=== PATIENT | female | born 1950 | race Caucasian/White ===

== ENCOUNTER 2024-05-22 11:39 | Outpatient (CLI) | payer MEDICARE, OTHER, SELFPAY ==
--- NOTE | 2024-05-22 13:11 | ECG_ITS ---
Test Date: 2024-05-22 13:15:48 Measurements Intervals [place] Rate: 59 P: 6 DE: 136 QRS: -14 QRSD: 93 T: -11 QT: 381 QTc: 380 Interpretive Statements BASELINE ARTIFACT, POOR ECG QUALITY SINUS BRADYCARDIA WITH SINUS ARRHYTHMIA POOR R-WAVE PROGRESSION NONSPECIFIC T-WAVE ABNORMALITY ABNORMAL ECG No previous ECG available for comparison Electronically Signed On 05-23-2024 07:05:33 CDT by Vasquez Lopez M.D.
[2024-05-22 13:37] LABS: Basophils Percent Auto 0.5 % (0.2-1.2); Eosinophils Absolute Auto 0.2 K/mm3 (0-0.3); Eosinophils Percent Auto 2.2 % (0-4.4); Hematocrit 42.9 % (37.0-47.0); Hemoglobin 14.1 g/dL (12.0-15.0); Immature Granulocyte Absolute 0.03 K/mm3 (0.00-0.031); Immature Granulocyte Percent A 0.4 % (0-0.5); Lymphocytes Absolute Auto 1.92 K/mm3 (0.9-3.2); Lymphocytes Percent Auto 24.4 % (18.3-44.2); Mean Corpuscular HGB Conc 32.9 g/dl (32-36); Mean Corpuscular Hemoglobin 29.1 pg (26-34); Mean Corpuscular Volume 88.6 fl (80-100); Mean Platelet Volume 9.6 fl (7.4-10.4); Monocytes Absolute Auto 0.6 K/mm3 (0.1-0.6); Monocytes Percent Auto 7.1 % (2.6-8.5); Neutrophils Absolute Auto 5.2 K/mm3 (1.3-6.7); Neutrophils Percent Auto 65.4 % (45.5-73.1); Platelet Count Result 313 k/mm3 (150-375); Red Blood Count 4.84 M/mm3 (4.2-5.4); Red Cell Distribution Width 13.4 % (11.5-14.5); White Blood Count 7.9 K/mm3 (4.5-10.0)
[2024-05-22 13:46] LABS: Alanine Aminotransferase 25 U/L (6-35); Albumin Level 4.3 g/dL (3.5-5.1); Alkaline Phosphatase 125 U/L (38-126); Anion Gap 7 mmol/L (4-12); Aspartate Amino Transferase 29 U/L (14-36); Bilirubin,Total 0.5 mg/dL (0.2-1.3); Blood Urea Nitrogen 15 mg/dL (7-17); Calcium 9.8 mg/dL (8.4-10.2); Carbon Dioxide 29 mmol/L (22-30); Chloride 105 mmol/L (98-107); Estimated Glomerular Filt Rate > 60; Glucose 102 mg/dL (65-110); Prothrombin Time 13.3 Seconds (11.1-14.7); Sodium 141 mmol/L (137-145)
[2024-05-22 13:47] LABS: Partial Thromboplastin Time 26.2 Seconds (22.3-36.8)
== END 2024-05-22 11:40 | disposition home or self-care (01) ==
PROVIDERS: PCP Family Medicine; Visit Provider Urology
DX: N81.4 Uterovaginal prolapse, unspecified (principal); E78.5 Hyperlipidemia, unspecified; I10 Essential (primary) hypertension; R94.31 Abnormal electrocardiogram [ECG] [EKG]
CPT/HCPCS: 36415; 80053; 85025; 85610; 85730; 86850; 86900; 86901; 93005

== ENCOUNTER 2024-06-04 02:21 | Day surgery (SDC) | payer MEDICARE, OTHER, SELFPAY ==
[2024-05-22 12:28] VITALS: BP 150/70; PULSE 76; RESP 16; TEMP 36.8; O2SAT 98; BMI 29.7
--- NOTE | 2024-05-22 12:30 | PC.NURSE ---
Report to the Outpatient Waiting Room, entrance under the green pavilion located off [facility], at time __06:00am___on date _06/04/24 . Planned Procedure Time: _07:30am .? Time changes happen often and if your time is changed the preop area will call you the afternoon before. - You and your visitor will be asked to self-screen and do not enter if you have any COVID symptoms. Please call surgeon if you need to reschedule. - A mask is optional within the hospital at this time. Patients may have clear liquids (water, carbonated beverages, clear teas, apple juice) until 3 hours prior to surgery with a maximum of 20 ounces. - No food from midnight until time of surgery and no smoking (04:30am) Take only the following medications with a SIP of water on the morning of surgery: ____None DO NOT STOP ANY OF YOUR OTHER PRESCRIPTION MEDICATIONS PRIOR TO SURGERY EXCEPT THE FOLLOWING Medications to discontinue per physician Hold all vitamins and supplements 3 days prior per Anesthesia Date to take last dose____05/31/24 Please no make-up, nail pashto, hairspray, perfume, deodorant, or body powder the day of surgery.? No jewelry (including any body piercings) or valuables the day of surgery, leave them at home.? Please take a shower or bath the night before, or the morning of, surgery with an antibacterial soap.? Wear comfortable, loose fitting clothing.? - Jewelry must be removed prior to entering the operating room.? Rings and piercings that are not removed may be cut off. - The hospital will not accept responsibility for valuables.? - Please leave all valuables, including medications, at home the day of surgery. If you are going home after surgery, a licensed milk wagon driver must drive you home.? - NO public transportation without another adult if you receive anesthesia. - We recommend that an adult stay with you for 24 hours following discharge. - We also recommend that you do not drive, make important decision, drink alcoholic beverages, or take any drugs that were not prescribed by your health care provider for at least 24 hours after your discharge time. Follow any additional instructions given to you from your surgeon. Telephone instructions given to __patient and asked if any additional questions and then verbalized understanding. Patient advised to call surgeon office or pre surgery nurse liaison [phone] if any additional questions.
--- NOTE | 2024-05-30 12:36 | PM.IMHP ---
H&P: HPI History of Present Illness Date/Time: 05/30/24 12:36 Chief Complaint: Uterine prolapse Narrative: Patient is admitted for robotic supracervical hysterectomy bilateral salpingo-oophorectomy. She has uterine prolapse sacral colpopexy and further were with Risks and benefits reviewed. She has a Pap smear [facility] Social History Social History Smoking packs per day: 0.5 Smoking cigarettes per day: 10.0 Years smoked: 30 Smoking pack-years: 15.00 Smoking status: Former smoker Smoking end date: 12/13/08 Alcohol intake: never Substance use: never Living arrangements: with family Additional living arrangements comments: Spiritual care concerns: No Meds Home Medications and Allergies Home Medications Medication Instructions Recorded Confirmed Type amlodipine 5 mg tablet 5 mg PO PRN PRN high bp 05/22/24 05/22/24 History atorvastatin 20 mg tablet 20 mg PO DAILY 05/22/24 05/22/24 History cetirizine 10 mg tablet 10 mg PO DAILY 05/22/24 05/22/24 History losartan 100 mg tablet 100 mg PO DAILY 05/22/24 05/22/24 History montelukast 10 mg tablet 10 mg PO DAILY 05/22/24 05/22/24 History (Singulair) omega 0-mqc-sul-fish oil 300 1 cap PO DAILY 05/22/24 05/22/24 History mg-1,000 mg capsule,delayed release (Fish Oil) pantoprazole 40 mg tablet,delayed 40 mg PO DAILY 05/22/24 05/22/24 History release vit A 7,160 unit-vit C 113 mg-vit 1 tablet PO DAILY 05/22/24 05/22/24 History E 100 cpzk-mlvc-mnerkj tablet Allergies Allergy/AdvReac Type Severity Reaction Status Date / Time amoxicillin [From Augmentin] AdvReac Intermediate Nausea and Verified 05/22/24 12:14 Vomiting clavulanic acid AdvReac Intermediate Nausea and Verified 05/22/24 12:14 [From Augmentin] Vomiting prednisone AdvReac Intermediate Palpitation Verified 05/22/24 12:17 s Exam Const: General: cooperative, healthy appearing, comfortable and average body habitus Nutritional Appearance: average body habitus Orientation/consciousness: oriented to person, oriented to place and oriented to time Resp: Effort & Inspection: normal respiratory effort Cardio: Rate: regular rate Rhythm: regular rhythm Heart sounds: S1 normal heart sound present and S2 normal heart sound present GI: Inspection: normal to inspection : External Female Exam: normal external appearance Speculum Exam - Vagina: normal appearance of the vagina Speculum Exam - Cervix: normal appearance of the cervix (Prolapse present) Bimanual exam- vagina & uterus: uterine size normal Bimanual Exam- Adnexa, other: normal adnexae Assessment and Plan Assessment and plan (1) Uterine prolapse: Code(s): N81.4 - Uterovaginal prolapse, unspecified Status: Acute Assessment and Plan: Robotic supracervical hysterectomy and bilateral salpingo-oophorectomy
--- NOTE | 2024-06-01 10:53 | P.HP_ITS ---
H&P: HPI History of Present Illness Date/Time: 06/01/24 10:53 Chief Complaint: Uterine prolapse Narrative: History of uterine prolapse without stress incontinence. Presents for surgical procedure Review of Systems Review of Systems: All systems reviewed & are unremarkable except as noted in HPI and below PMFSH Social History Social History Smoking packs per day: 0.5 Smoking cigarettes per day: 10.0 Years smoked: 30 Smoking pack-years: 15.00 Smoking status: Former smoker Smoking end date: 12/13/08 Alcohol intake: never Substance use: never Living arrangements: with family Additional living arrangements comments: Spiritual care concerns: No Meds Home Medications and Allergies Home Medications Medication Instructions Recorded Confirmed Type amlodipine 5 mg tablet 5 mg PO PRN PRN high bp 05/22/24 05/22/24 History atorvastatin 20 mg tablet 20 mg PO DAILY 05/22/24 05/22/24 History cetirizine 10 mg tablet 10 mg PO DAILY 05/22/24 05/22/24 History losartan 100 mg tablet 100 mg PO DAILY 05/22/24 05/22/24 History montelukast 10 mg tablet 10 mg PO DAILY 05/22/24 05/22/24 History (Singulair) omega 0-jko-eab-fish oil 300 1 cap PO DAILY 05/22/24 05/22/24 History mg-1,000 mg capsule,delayed release (Fish Oil) pantoprazole 40 mg tablet,delayed 40 mg PO DAILY 05/22/24 05/22/24 History release vit A 7,160 unit-vit C 113 mg-vit 1 tablet PO DAILY 05/22/24 05/22/24 History E 100 gkdy-wrub-oynsxl tablet Allergies Allergy/AdvReac Type Severity Reaction Status Date / Time amoxicillin [From Augmentin] AdvReac Intermediate Nausea and Verified 05/22/24 12:14 Vomiting clavulanic acid AdvReac Intermediate Nausea and Verified 05/22/24 12:14 [From Augmentin] Vomiting prednisone AdvReac Intermediate Palpitation Verified 05/22/24 12:17 s Exam Narrative: Anterior wall +3. [place] at 0 Assessment and Plan Assessment and plan (1) Uterine prolapse: Code(s): N81.4 - Uterovaginal prolapse, unspecified Status: Acute Assessment and Plan: Plan is for robotic sacral colpopexy. Understands risks of bleeding, infection, damage surrounding organs, damage to urinary tract, vaginal mesh extrusion, urinary tract mesh erosion, obstructive voiding requiring secondary procedure, hip and leg pain, dyspareunia recurrent prolapse. New onset stress incontinence, dyspareunia, recurrence of prolapse. Agrees to proceed
[2024-06-04] VITALS (15 sets, daily range): BP systolic 116–168; BP diastolic 67–91; PULSE 52–67; RESP 12–20; TEMP 35.6–36.9; O2SAT 95–100; BMI 29.5
[2024-06-04] MEDS: LACTATED RINGERS 1,000 ML 30 ML IV CONT ×2 (06:40→10:02)
[2024-06-04] MEDS: ACETAMINOPHEN 500 MG TABLET 1000 MG PO (06:43)
[2024-06-04] MEDS: KETOROLAC 15 MG/ML VIAL (*BKC) IV PUSH (06:43)
--- NOTE | 2024-06-04 06:57 | WPDHPUPDATE1 ---
History and Physical Update Update Date/Time: 06/04/24 06:57 History and Physical has been reviewed, including an updated exam of the patient. There are NO changes in the patient's condition. Risks, benefits, and alternatives have been discussed and questions answered. Patient agrees to proceed with procedure.
--- NOTE | 2024-06-04 07:16 | WPDHPUPDATE1 ---
History and Physical Update Update Date/Time: 06/04/24 07:16 History and Physical has been reviewed, including an updated exam of the patient. There are NO changes in the patient's condition. Risks, benefits, and alternatives have been discussed and questions answered. Patient agrees to proceed with procedure.
--- NOTE | 2024-06-04 07:25 | P.PNAN_ITS ---
Anes - Initial Pre Proc Eval Procedure: Operation Date: 06/04/24 07:30 Proposed Procedures p Robotic Sacrocolpopexy, - Yonny Dangelo MD s Robotic Assisted Supracervical Hysterectomy, Bilateral Salpingo-oophorectomy - Linus Olson MD Date/Time: 06/04/24 07:25 Surgeon: Yonny Dangelo MD Pre Op Diagnosis: cystocele,uterine prolapse, stress incont Patient Data Age: 74 Gender: F Height: 1.63 m Weight: 78.2 kg Last Vital Signs Temp 97.0 F L 06/04/24 05:50 Pulse 66 06/04/24 05:50 Resp 16 06/04/24 05:50 BP 158/91 H 06/04/24 05:50 Pulse Ox 98 06/04/24 05:50 O2 Del Method Room Air 06/04/24 05:50 Allergies Allergy/AdvReac Type Severity Reaction Status Date / Time amoxicillin [From Augmentin] AdvReac Intermediate Nausea and Verified 06/04/24 06:12 Vomiting clavulanic acid AdvReac Intermediate Nausea and Verified 06/04/24 06:12 [From Augmentin] Vomiting prednisone AdvReac Intermediate Palpitation Verified 06/04/24 06:12 s Home Medications Medication Instructions Recorded Confirmed Type amlodipine 5 mg tablet 5 mg PO PRN PRN high bp 05/22/24 05/22/24 History atorvastatin 20 mg tablet 20 mg PO DAILY 05/22/24 05/22/24 History cetirizine 10 mg tablet 10 mg PO DAILY 05/22/24 05/22/24 History losartan 100 mg tablet 100 mg PO DAILY 05/22/24 05/22/24 History montelukast 10 mg tablet 10 mg PO DAILY 05/22/24 05/22/24 History (Singulair) omega 1-vnb-wlv-fish oil 300 1 cap PO DAILY 05/22/24 06/04/24 History mg-1,000 mg capsule,delayed release (Fish Oil) pantoprazole 40 mg tablet,delayed 40 mg PO DAILY 05/22/24 05/22/24 History release vit A 7,160 unit-vit C 113 mg-vit 1 tablet PO DAILY 05/22/24 06/04/24 History E 100 datl-ldsv-qugibd tablet Patient hx anesthesia problems: none Family hx anesthesia problems: none Results Review: All pre-operative results and documents have been reviewed as part of the pre- operative evaluation. [facility] Social History Social History Smoking packs per day: 0.5 Smoking cigarettes per day: 10.0 Years smoked: 30 Smoking pack-years: 15.00 Smoking status: Former smoker Smoking end date: 12/13/08 Alcohol intake: never Substance use: never Living arrangements: with family Additional living arrangements comments: Spiritual care concerns: No Anes - Eval Final PreProcedure Day of Procedure 06/04/24 07:25 Patient weight: normal Heart: regular rate and rhythm Lungs: clear to auscultation Airway: Mallampati scale class II Neurological: alert and oriented Last oral intake: >/= 8 hours ASA classification: III Emergent: no Anesthetic plan: proceed Anesthesia type and monitoring: general ETT and standard monitoring Results Review: All pre-operative results and documents have been reviewed as part of the pre- operative evaluation. Informed Consent: The patient's anesthetic plan and its attendant risks and benefits were discussed with the patient/family/POA. Questions were solicited and answers provided to the satisfaction of the patient/family/POA.
[2024-06-04] MEDS: ceFAZolin 2 GM/D5W 50 ML 2 GM/50 ML BAG IVPB (07:34)
[2024-06-04] MEDS: metroNIDAZOLE 500 MG/ISO 100ML 500 MG/100 ML BAG 100 MG IVPB ×3 (08:02→23:42)
--- NOTE | 2024-06-04 08:39 | W.PM.PROC2 ---
Procedure Note - Detailed Date of Procedure 06/04/24 Pre-op Diagnosis cystocele,uterine prolapse, stress incont Post-op Diagnosis Same Procedure Performed Robotic supracervical hysterectomy and bilateral salpingo-oophorectomy Surgeon Linus Olson MD Anesthesia General Indications this patient is a 74-year-old with uterine prolapse Findings prolapsed uterus with possible small fibroid. Tubes status post tubal ligation. Normal-appearing ovaries Description of Procedure the patient is prepped draped sterile fashion placed in dorsal lithotomy position. Under excellent general trach anesthesia weighted speculum placed in posterior fornix vagina. Anterior lip of the cervix grasped with a single-tooth tenaculum. Jasmine's cannula inserted the cervix and attached to the single-tooth. This would be used later for uterine manipulation. A 16 [place] catheter placed in the bladder and drained of clear urine. The weighted speculum was removed and the gloves were changed. Attention was turned to the console. Please see Dr. Martínez dictation concerning placing of the robot arms. The left round ligament was grasped, burned, cut. Anterior bladder flap was formed by sharply dissecting the peritoneum and reflecting the bladder caudally away from the cervix uterus to the opposite round ligament which was clamped, burned, cut. Next the left infundibulopelvic structure was skeletonized to remove the remaining portion of tube and the ovary. This was clamped, burned, cut and brought to level of previously cut round ligament. In similar fashion to remove the right ovary and tube the right infundibulopelvic structure was skeletonized clamped burned and cut and brought to level of previously cut round ligament. The cardinal broad ligaments on the left were serially skeletonized hugging the cervix uterus clamping burning cutting and bringing these down to the level of the uterine vessels. These were individually clamped, burned, cut. In similar fashion on the right, hugging the cervix and uterus the cardinal broad ligaments were clamped, burned, cut and brought to level of uterine vessels. These were then individually clamped, burned, cut. A supracervical incision made and the uterus ovaries and tubes placed in an Endo-Catch. Dr. Lyon took over from there. Blood loss to this point was [id number] there were no complications to this moment Estimated Blood Loss 5 Drains No Packing No Pathology Yes Complications No immediate complications Condition Stable Disposition No change
--- NOTE | 2024-06-04 08:42 | P.DS_ITS ---
DS: Admitting Diagnosis Discharge Date 06/05/2020 Admitting Diagnosis uterine prolapse DS: Discharge Diagnosis Discharge Diagnosis (1) Uterine prolapse: Code(s): N81.4 - Uterovaginal prolapse, unspecified Status: Acute DS: Summary Hospital Course Reason for hospitalization: patient was admitted for robotic supracervical hysterectomy bilateral salpingo- oophorectomy and robotic sacral colpopexy Hospital Course: patient's hospital course. She remained afebrile. She was up, voiding without difficulty, eating regular diet, ambulating, and generally without complaints. Time Spent with Patient Time attestation: Total time spent providing and/or coordinating discharge services: Exam Const: General: cooperative, healthy appearing and comfortable Nutritional Appearance: average body habitus Orientation/consciousness: oriented to person, oriented to place and oriented to time HENMT: Head: normal to inspection Resp: Effort & Inspection: normal respiratory effort Cardio: Rate: regular rate Rhythm: regular rhythm Heart sounds: S1 normal heart sound present and S2 normal heart sound present GI: Inspection: normal to inspection and incision ( Wounds are clean dry and intact) Discharge Plan Discharge Attending physician on discharge: Linus Mclain Discharging Clinician: Linus Mclain Patient Disposition: Home, Self-Care Discharge Instructions: No lifting >20lb, exercise for 6 weeks No tub bath or pool for 2 weeks No lifting >20lbs 6 weeks Stand Alone Forms: General Discharge Instructions Follow-up/Referrals: Yonny Dangelo MD [Physician] - (6 weeks) Discharge Medications: New hydrocodone-acetaminophen 5-325 mg tablet 1 tablet PO Q6H PRN (Reason: pain) Qty: 20 0RF docusate sodium [Colace] 100 mg capsule 100 mg PO BID Qty: 40 0RF Continued amlodipine 5 mg tablet 5 mg PO PRN PRN (Reason: high bp) Patient Comments: see above atorvastatin 20 mg tablet 20 mg PO DAILY cetirizine 10 mg tablet 10 mg PO DAILY pantoprazole 40 mg tablet,delayed release (DR/EC) 40 mg PO DAILY losartan 100 mg tablet 100 mg PO DAILY vit A-vit C-vit E-otgf-etddhj 7,160-113-100 lpme-dd-gunb Tablet 1 tablet PO DAILY montelukast [Singulair] 10 mg Tablet 10 mg PO DAILY omega 1-wns-rnj-fish oil [Fish Oil] 300-1,000 mg Capsule,Delayed Release(Dr/Ec) 1 cap PO DAILY Attending physician on admission: Yonny Dangelo
[2024-06-04] MEDS: BUPIVACAINE/EPINEPHRINE 0.5% 50 ML VIAL 28 ML INFILTRATE (08:43)
--- NOTE | 2024-06-04 09:58 | P.OP_ITS ---
Procedure Note - Detailed Date of Procedure 06/04/24 Pre-op Diagnosis cystocele,uterine prolapse Post-op Diagnosis Same Procedure Performed Robotic assisted laparoscopic sacral colpopexy Cystoscopy Surgeon Yonny Dangelo MD Anesthesia General Indications A woman with uterine prolapse without stress incontinence. She desires surgical correction. She is here for the above. She understands risks of bleeding, infection, diskitis, damage to surrounding organs, bowel injury, bowel obstruction, mesh related complications including exposure and extrusion, postoperative voiding dysfunction including incontinence and retention, need for ancillary procedures, dyspareunia, recurrence of prolapse, and other pe rioperative intraoperative postoperative complications. She agrees to proceed. Findings See below Description of Procedure She was correctly identified. Informed consent obtained. She from the operating room. She was given general anesthesia. She was given appropriate perioperative antibiotics. She was placed a low lithotomy position. Pressure points were padded. A time-out performed. I marked out the skin 3 fingerbreadths cephalad to the umbilicus. I anesthetized the skin. I incised the skin. I dissected down to the fascia. I grasped the fascia with Sky clamps. I entered the fascia sharply in a Morris type technique. I placed sutures for later fascial closure. I placed a midline trocar. I examined the abdomen. There is no sign of any injury. Under direct vision I placed 2 additional trocars in the right upper quadrant and 2 additional trocars the left upper quadrant. She was placed in steep Trendelenburg. The robot was docked. Her special weapons unit officer completed their portion of the procedure. Please see that operative report for details. I then sat at the console. The Sizer in the vagina created plane on the anterior and posterior vaginal wall. I took great care not to injure the vagina, bladder, or rectum. I introduced the mesh into the abdomen. I sewed the anterior leaflet of mesh on the anterior vaginal wall. I sewed the posterior leaflet of mesh on the posterior vaginal wall. This was done with several sutures of 2 0 [place]-Shabbir. I reflected the colon laterally. I opened the posterior peritoneum over the sacral promontory. I carried this into the cul-de-sac. I freed up the edges for later retroperitonealization. I located the anterior longitudinal ligament the sacrum. I cleaned off all fatty tissues. I then tensioned my mesh appropriately. I did a vaginal exam the bedside. I assured prolapse reduction without undue tension. There was no exposed sutures in the vagina. I then sewed the proximal leaflet of mesh onto the anterior longitudinal ligament of the sacrum with 4 sutures of 2 0 [place]-Shabbir. I then used a 2 0 Monocryl to completely and meticulously retroperitonealized all mesh. I allowed the colon to go back to its normal anatomic location. There is no sign of any impingement. The specimen was then removed. All ports removed. Fascia was tied down. Skin was closed with Monocryl and surgical glue. I then performed cystoscopy. There was no tumors or surgical artifact. Both ureters were seen to excrete clear yellow urine. There is no surgical artifact in the bladder or urethra. Dixon catheter was replaced. She was awakened and transferred to PACU in stable condition. Implants Sacral colpopexy mesh Estimated Blood Loss 10 Packing No Pathology None sent Complications No immediate complications Condition Stable Disposition PACU
[2024-06-04] MEDS: ONDANSETRON INJ 4 MG/2 ML VIAL IV PUSH (10:38)
[2024-06-04 10:47] LABS: Glucose Point of Care 145 mg/dl (65-105)
[2024-06-04] MEDS: diphenhydrAMINE HCl INJ 50 MG/ML VIAL 12.5 MG IV PUSH (10:52)
[2024-06-04] MEDS: SCOPOLAMINE 1 MG PATCH 1 PATCH TRANSDERM (11:20)
[2024-06-04] MEDS: fentaNYL CITRATE INJ (*CRX) 100 MCG/2 ML VIAL 25 MCG IV PUSH (11:30)
--- NOTE | 2024-06-04 12:00 | PC.NURSE ---
This patient, Rosa Gonzáles, was received from [PACU] per bed to room 282 on 06/04/24 at 1224. Patient/family oriented to unit policies and routines
[2024-06-04] MEDS: KCL 20 MEQ/D5/0.45% SOD CHL 1,000 ML 100 ML IV CONT ×2 (12:35→23:41)
[2024-06-04] MEDS: LORATADINE 10 MG TABLET PO (14:09)
[2024-06-04] MEDS: METOCLOPRAMIDE HCL INJ 10 MG/2 ML VIAL 5 MG IV PUSH ×2 (16:05)
[2024-06-04] MEDS: MONTELUKAST SODIUM 10 MG TABLET PO (20:59)
[2024-06-04] MEDS: ATORVASTATIN 20 MG TABLET PO (20:59)
[2024-06-04] MEDS: ACETAMINOPHEN 325 MG TABLET 650 MG PO (21:00)
[2024-06-05] MEDS: ACETAMINOPHEN 325 MG TABLET 650 MG PO ×2 (04:35→11:11)
[2024-06-05 04:40] VITALS: BP 131/76; PULSE 59; RESP 20; TEMP 37.1; O2SAT 97
--- NOTE | 2024-06-05 06:53 | PM.GYNPNOP ---
SPINNING SUPERVISOR - A/P Postoperative Procedures: Procedures Operation Date: 06/04/24 07:30 Actual Procedure Side Surgeon p Robotic Sacrocolpopexy, Cystoscopy Not Applicable Yonny Dangelo MD s Robotic Assisted Supracervical Hysterectomy, Bilateral Salpingo-oophorectomy Bilateral Linus Olson MD Postoperative day: 1 Postoperative status: doing well Postoperative plan: routine post-op care, see orders, ambulate, advance diet, voiding trials and discharge Time Spent With Patient Time: Total time spent is greater than 50% in coordination of care (as documented) at patient's floor/unit and/or counseling patient: Time with patient: less than 15 minutes SPINNING SUPERVISOR- PN:Subj Post-Op Subjective Date/time seen: 06/05/24 06:53 Subjective: patient reports feeling better, patient has no complaints, patient desires discharge, pain is well controlled and patient is tolerating oral intake Exam Const: General: cooperative, healthy appearing and comfortable Nutritional Appearance: average body habitus Orientation/consciousness: oriented to person, oriented to place and oriented to time HENMT: Head: normal to inspection Resp: Effort & Inspection: normal respiratory effort Cardio: Rate: regular rate Rhythm: regular rhythm Heart sounds: S1 normal heart sound present and S2 normal heart sound present GI: Inspection: normal to inspection and incision (cdi) SPINNING SUPERVISOR - PN: Obj Data Vital Signs Vital Signs: Vital Signs - 24 hr 06/04/24 10:02 06/04/24 10:15 06/04/24 10:30 Temperature 97.8 F Pulse Rate 64 60 59 L Respiratory Rate 14 12 14 Blood Pressure 124/76 154/71 H 163/75 H Pulse Oximetry 98 100 100 Oxygen Delivery Simple Face Mask Simple Face Mask Simple Face Mask Oxygen Flow Rate 8 8 8 06/04/24 10:45 06/04/24 11:00 06/04/24 11:15 Temperature Pulse Rate 52 L 55 L 55 L Respiratory Rate 14 12 12 Blood Pressure 157/73 H 155/88 H 168/69 H Pulse Oximetry 97 95 98 Oxygen Delivery Room Air Room Air Room Air Oxygen Flow Rate 06/04/24 11:30 06/04/24 11:45 06/04/24 11:54 Temperature 97.5 F L Pulse Rate 52 L 63 60 Respiratory Rate 12 18 15 Blood Pressure 152/81 H 148/69 H 144/79 H Pulse Oximetry 95 100 100 Oxygen Delivery Room Air Nasal Cannula Nasal Cannula Oxygen Flow Rate 2 2 06/04/24 12:05 06/04/24 12:05 06/04/24 18:55 Temperature 96.1 F L Pulse Rate 55 L 55 L Respiratory Rate 16 16 Blood Pressure 159/72 H Pulse Oximetry 100 100 Oxygen Delivery Nasal Cannula Room Air Oxygen Flow Rate 1 06/04/24 13:10 06/04/24 13:10 06/04/24 12:55 Temperature 97.2 F L Pulse Rate 65 Respiratory Rate 16 Blood Pressure Pulse Oximetry 96 96 99 Oxygen Delivery Room Air Nasal Cannula Oxygen Flow Rate 1 06/04/24 17:00 06/04/24 17:00 06/04/24 23:43 Temperature 98.5 F 98.4 F Pulse Rate 67 66 Respiratory Rate 16 20 Blood Pressure 150/85 H 116/67 Pulse Oximetry 98 98 99 Oxygen Delivery Room Air Oxygen Flow Rate 06/04/24 23:43 06/05/24 04:40 06/05/24 04:40 Temperature 98.8 F Pulse Rate 59 L Respiratory Rate 20 Blood Pressure 131/76 Pulse Oximetry 97 Oxygen Delivery Room Air Room Air Oxygen Flow Rate Intake/Output Intake/Output: Intake & Output 06/02/24 06/03/24 06/04/24 06/05/24 23:59 23:59 23:59 23:59 Intake Total 0 Output Total 315 1750 Balance 1275 -1750 Meds/Results Medications: Active Medications Generic Name Dose Route Start Last Admin Trade Name Freq PRN Reason Stop Dose Admin Acetaminophen 650 mg 06/04/24 11:59 06/05/24 04:35 Acetaminophen 325 Mg Tablet PO 650 mg Q4H PRN Administration Mild Pain (1-3) or Fever Hydrocodone Bitart/Acetaminophen 1 tab 06/04/24 11:59 Hydrocodone/Acetaminophen (*Crx) 5-325 Mg Tablet PO Q4H PRN Pain Rated 4-5 Amlodipine Besylate 5 mg 06/04/24 11:59 Amlodipine Besylate 5 Mg Tablet PO PRN PRN high bp Atorvastatin Calcium 20 mg 06/04/24 21:00 06/04/24 20:59 Atorvastatin 20 Mg Tablet PO 20 mg HS ANUJA Administration Diphenhydramine HCl 25 mg 06/04/24 11:59 Diphenhydramine Hcl Inj 50 Mg/Ml Vial IV PUSH Q6H PRN Itching Docusate Sodium 100 mg 06/04/24 11:59 06/04/24 14:10 Docusate Sodium 100 Mg Capsule PO Not Given DAILY [facility] Enoxaparin Sodium 30 mg 06/05/24 09:00 Enoxaparin 30 Mg/0.3 Ml Syringe SUB-Q DAILY ANUJA Metronidazole 500 mg in 100 mls @ 100 mls/hr 06/04/24 16:00 06/04/24 23:42 Flagyl 500 Mg/Iso Soln 100 Ml IVPB 100 mls/hr Q8H ANUJA Administration Potassium Chloride/Dextrose/Sod Cl 1,000 mls @ 100 mls/hr 06/04/24 11:59 06/04/24 23:41 Kcl 20 Meq/D5/0.45% Sod Chl IV CONT 100 mls/hr .Q10H ANUJA Administration Levofloxacin/Dextrose 500 mg in 100 mls @ 100 mls/hr 06/05/24 09:00 Levaquin 500 Mg/D5w 100 Ml IVPB Q24H [facility] Ketorolac Tromethamine 15 mg 06/04/24 11:59 Ketorolac 15 Mg/Ml Vial (*Bkc) IV PUSH Q8H PRN Pain Rated 5 or Less Loratadine 10 mg 06/04/24 12:15 06/04/24 14:09 Loratadine 10 Mg Tablet PO 10 mg QAM ANUJA Administration Losartan Potassium 100 mg 06/04/24 11:59 06/04/24 14:10 Losartan Potassium 100 Mg Tablet PO Not Given DAILY [facility] Metoclopramide HCl 5 mg 06/04/24 16:09 06/04/24 16:05 Metoclopramide Hcl Inj 10 Mg/2 Ml Vial IV PUSH 5 mg Q6HR PRN Administration Nausea And Vomiting Miscellaneous Information 1 each 06/04/24 00:01 Amlodipine Prn Prn High Bp . Vague Order. How Often Per Day Prn And Provide More Specific XX 07/04/24 00:00 CLARIFY ANUJA Montelukast Sodium 10 mg 06/04/24 21:00 06/04/24 20:59 Montelukast Sodium 10 Mg Tablet PO 10 mg HS ANUJA Administration Morphine Sulfate 2 mg 06/04/24 11:59 Morphine Sulfate (*Crx) 2 Mg/Ml Inj IV PUSH Q2H PRN Pain Rated 6 or Greater Ondansetron HCl 4 mg 06/04/24 16:02 Ondansetron Inj 4 Mg/2 Ml Vial IV PUSH Q4H PRN Nausea And Vomiting Pantoprazole Sodium 40 mg 06/04/24 11:59 06/04/24 14:10 Pantoprazole 40 Mg Tablet PO Not Given DAILY ANUJA Zolpidem Tartrate 5 mg 06/04/24 11:59 Zolpidem Tartrate (*Crx) 5 Mg Tablet PO HS PRN Insomnia Labs Labs: Laboratory Results - last 24 hr 06/04/24 10:45 POC Capillary Glucose 145 H
[2024-06-05 07:50] VITALS: BP 141/80; PULSE 69; RESP 16; TEMP 36.7; O2SAT 97
[2024-06-05] MEDS: LORATADINE 10 MG TABLET PO (08:40)
[2024-06-05] MEDS: LOSARTAN POTASSIUM 100 MG TABLET PO (08:40)
[2024-06-05] MEDS: PANTOPRAZOLE 40 MG TABLET PO (08:40)
[2024-06-05] MEDS: DOCUSATE SODIUM 100 MG CAPSULE PO (08:40)
[2024-06-05] MEDS: ENOXAPARIN 30 MG/0.3 ML SYRINGE SUB-Q (08:41)
== END 2024-06-05 11:21 | disposition home or self-care (01) ==
LOC: ANHSURGERY 12:01 → ANHOB2 12:03
PROVIDERS: Obstetrics & Gynecology; PCP Family Medicine; Visit Provider Urology
PROC: (CPT 57425; principal; 2024-06-04 07:30)
PROC: 0UT94ZZ Resection of Uterus, Percutaneous Endoscopic Approach (ICD-10-PCS; CPT 57425; 2024-06-04 07:30)
DX: N81.4 Uterovaginal prolapse, unspecified (principal); N39.3 Stress incontinence (female) (male); N84.0 Polyp of corpus uteri; N80.03 Adenomyosis of the uterus; D27.1 Benign neoplasm of left ovary; D27.0 Benign neoplasm of right ovary; N88.8 Other specified noninflammatory disorders of cervix uteri; Z79.899 Other long term (current) drug therapy; Z87.891 Personal history of nicotine dependence; Z98.890 Other specified postprocedural states; Z98.51 Tubal ligation status
CPT/HCPCS: 58542; 57425; S2900 ×2; 82948; 88307; A9270; C1781; J0690; J1171; J1200; J1596; J1650; J1836; J1885; J2003; J2250; J2405; J2704; J2765; J3010; J3480; J7030; J7120

== ENCOUNTER 2024-06-07 15:17 | Emergency (ER) | payer MEDICARE, OTHER, SELFPAY ==
[2024-06-07] VITALS (21 sets, daily range): BP systolic 153–176; BP diastolic 77–98; PULSE 73–101; RESP 12–22; TEMP 36.6; O2SAT 93–100
--- NOTE | ~2024-06-07 | CT_ITS ---
EXAMINATION: CT abdomen pelvis w con DATE: 06/07/2024 18:16 INDICATION: Lower abdominal pain TECHNIQUE: Computed tomography (CT) of the abdomen and pelvis was performed with 100 mL Omnipaque-350 intravenous contrast. Automated exposure control and iterative reconstruction technique were employe d. The dose-length product was 767.54 mGy-cm. COMPARISON: None FINDINGS: Small fat-containing posterior medial left diaphragmatic hernia. Mild discoid atelectasis lingula. He art size is normal. No pericardial or pleural effusion. Small sliding-type hiatal hernia. Focal hepat ic steatosis ligamentum teres. Gallbladder, spleen, pancreas, bilateral adrenal glands and kidneys ar e normal. 3.8 cm duodenal diverticulum. There are few scattered colonic diverticula without adjacent comparison to suggest diverticulitis. Bowels are otherwise unremarkable with no abnormal wall thicken ing or obstruction. Normal appendix. Postoperative change of recent hysterectomy and bilateral oophor ectomy. There is small amount of retroperitoneal stranding and small focus of peritoneal gas in the r ight posterior pelvis. Additional expected soft tissue gas and stranding in the anterior abdominal wa ll. There is a small fat-containing umbilical hernia and slightly larger fat-containing supraumbilica l hernia and tiny fat and minimal amount of fluid. No abscess or free intraperitoneal gas. No patholo gically enlarged abdominal or pelvic lymphadenopathy. Bladder is normal. Moderate lumbar and lower t horacic spondylosis. IMPRESSION: 1. Changes consistent with recent hysterectomy and bilateral salpingo-oophorectomy. No abscess or oth er acute intra-abdominal/pelvic process. 2. Fat-containing umbilical and supraumbilical ventral hernias. Reviewed, dictated and finalized at location A. IMPRESSION: 1. Changes consistent with recent hysterectomy and bilateral salpingo-oophorect srini. No abscess or other acute intra-abdominal/pelvic process. 2. Fat-containing umbilical and supraumbilical ventral hernias.
[2024-06-07 16:56] LABS: Basophils Percent Auto 0.3 % (0.2-1.2); Eosinophils Absolute Auto 0.1 K/mm3 (0-0.3); Hematocrit 43.9 % (37.0-47.0); Hemoglobin 14.5 g/dL (12.0-15.0); Immature Granulocyte Absolute 0.05 K/mm3 (0.00-0.031); Immature Granulocyte Percent A 0.5 % (0-0.5); Lymphocytes Absolute Auto 1.66 K/mm3 (0.9-3.2); Mean Corpuscular Hemoglobin 29.1 pg (26-34); Mean Platelet Volume 9.8 fl (7.4-10.4); Monocytes Absolute Auto 0.7 K/mm3 (0.1-0.6); Monocytes Percent Auto 6.7 % (2.6-8.5); Neutrophils Absolute Auto 8.5 K/mm3 (1.3-6.7); Neutrophils Percent Auto 76.5 % (45.5-73.1); Platelet Count Result 325 k/mm3 (150-375); Red Blood Count 4.99 M/mm3 (4.2-5.4); White Blood Count 11.1 K/mm3 (4.5-10.0)
[2024-06-07] MEDS: ACETAMINOPHEN 500 MG TABLET 1000 MG PO (16:57)
[2024-06-07 17:02] LABS: Add Urine Microscopic? YES; Appearance Urine Clear (Clear); Bacteria Urine None Seen /hpf; Bilirubin Urine Negative (Negative); Blood Urine Negative (Negative); Color Urine Yellow (Yellow); Glucose Urine UA Negative (Negative); Ketones Urine Negative (Negative); Leukocyte Esterase Ur Trace LEU/UL (Negative); Nitrate Urine Negative (Negative); Non Pathogenic Casts 0-2; Protein Urine Negative (Negative); RBC Urine 0-2 /hpf (0-2); Specific Grav Ur 1.007 (1.001-1.035); Squamous Epithelial Cell Urine None Seen /hpf (Few); Urobilinogen Urine 0.2 mg/dL (<2.0); WBC Urine 0-5 /hpf (0-3)
[2024-06-07 17:07] LABS: Lactic Acid Reflex 1.6 mmol/L (0.7-2.0); Lipase 73 U/L (23-300)
[2024-06-07 18:12] LABS: Estimated CRCL calculation 49 ml/min; Estimated Glomerular Filt Rate > 60
--- NOTE | 2024-06-07 18:45 | ED.ABDPAIN ---
HPI - Abdominal Pain General Chief Complaint: Abdominal Pain Stated Complaint: surgery 06/[address]Dalla Olson now having abd pain Time Seen by Provider: 06/07/24 16:21 Source: patient and family Mode of arrival: ambulatory Limitations: no limitations History of Present Illness HPI narrative: 74-year-old with a history of hypertension status post hysterectomy done 4 days ago here with a complaint of sudden onset of lower abdominal pain. Patient states that she was trying to have bowel movement felt extreme pain in the lower abdomen more on the left side. Patient states that she has been taking her medications which includes Tylenol, Senna, Gas-X. She denies any nausea or vomiting. No history of fever or chills patient states that she was given hydrocodone for pain ,was scared to take it as it can make her constipated. MD elicited complaint: abdominal pain Pertinent past history: other (Recent hysterectomy, bladder sling surgery) Onset (ago): hour(s) (1) Location: LLQ and suprapubic Severity: moderate Quality: aching Migration to: no migration Exacerbating factors: nothing Relieving factors: nothing Context: confirms recent surgery/procedure (Hysterectomy with bladder sling surgery) Associated symptoms: denies other symptoms Related Data Home Medications Medication Instructions Recorded Confirmed amlodipine 5 mg tablet 5 mg PO PRN PRN high bp 05/22/24 05/22/24 atorvastatin 20 mg tablet 20 mg PO DAILY 05/22/24 05/22/24 cetirizine 10 mg tablet 10 mg PO DAILY 05/22/24 05/22/24 losartan 100 mg tablet 100 mg PO DAILY 05/22/24 05/22/24 montelukast 10 mg tablet 10 mg PO DAILY 05/22/24 05/22/24 (Singulair) omega 4-gyu-tds-fish oil 300 1 cap PO DAILY 05/22/24 06/04/24 mg-1,000 mg capsule,delayed release (Fish Oil) pantoprazole 40 mg tablet,delayed 40 mg PO DAILY 05/22/24 05/22/24 release vit A 7,160 unit-vit C 113 mg-vit 1 tablet PO DAILY 05/22/24 06/04/24 E 100 qxku-rlyc-dyyvrn tablet Allergies Allergy/AdvReac Type Severity Reaction Status Date / Time amoxicillin [From Augmentin] AdvReac Intermediate Nausea and Verified 06/07/24 15:17 Vomiting clavulanic acid AdvReac Intermediate Nausea and Verified 06/07/24 15:17 [From Augmentin] Vomiting prednisone AdvReac Intermediate Palpitation Verified 06/07/24 15:17 s Review of Systems Review of Systems: All systems reviewed & are unremarkable except as noted in HPI and below Constitutional: Constitutional: Reports no additional constitutional complaints Eyes: Eyes: Reports no additional eye complaints ENT: Reports system reviewed and no additional complaints, except as documented Cardiovascular: Cardiovascular: Reports no additional cardiovascular complaints Respiratory: Respiratory: Reports no additional respiratory complaints Gastrointestinal: Gastrointestinal: Reports as per HPI Musculoskeletal: Musculoskeletal: Reports no additional musculoskeletal complaints [facility] Social History Social History Smoking packs per day: 0.5 Smoking cigarettes per day: 10.0 Years smoked: 30 Smoking pack-years: 15.00 Smoking status: Former smoker Smoking end date: 12/13/08 Alcohol intake: never Substance use: never Living arrangements: with family Additional living arrangements comments: Spiritual care concerns: No Exam Narrative: GENERAL: Well-appearing, well-nourished, and in no acute distress. HEAD: Normocephalic, atraumatic. EYES: PERRLA and EOMI. ENT: Nares clear, . Mucous membranes moist. NECK: Supple. CHEST: Clear to auscultation. No respiratory distress. HEART: Regular rate and rhythm. No murmur heard. Normal peripheral pulses. ABDOMEN: Soft, nontender, nondistended, normal active bowel sounds.surgical scars look clean , EXTREMITIES: Normal range of motion. No edema. SKIN: Warm, dry, no rash. NEURO: No focal deficits. Alert and oriented x3. PSYCH: Normal mood and affect. Course Course Emergency Course: Notified patient and about her lab work, CT findings. I discussed with Delivery were informed about the CT and lab work. He feels comfortable sending her home. Recommended her to follow-up in the office. I advised her to take hydrocodone tablet if the pain is quite intense, continue home medication. Vital Signs Vital signs: Vital Signs Pulse Oximetry 100 06/07/24 15:23 Temperature 36.6 C 06/07/24 15:29 Pulse Rate 85 06/07/24 18:01 Respiratory Rate 18 06/07/24 18:01 Blood Pressure 166/87 H 06/07/24 18:01 Pulse Oximetry 98 06/07/24 18:01 Oxygen Delivery Room Air 06/07/24 15:29 MDM - Abdominal Pain MDM Narrative Medical decision making narrative: 74-year-old status post a hysterectomy and bladder sling surgery done 4 days ago now having fever lower abdominal pain no history of nausea vomiting , reviewed exam is benign will do a abdominal workup including CT of the abdomen. Patient declined any narcotic wants Tylenol. Differential Diagnosis Differential diagnosis: Likely abdominal pain, constipation and small bowel obstruction Medical Records Attestation: I reviewed the patient's medical records. Lab Data Attestation: I reviewed the patient's lab results. 06/07/24 16:46 06/07/24 18:09 Labs: Lab Results 06/07/24 06/07/24 Range/Units 16:46 18:09 WBC 11.1 H (4.5-10.0) K/mm3 RBC 4.99 (4.2-5.4) M/mm3 Hgb 14.5 (12.0-15.0) g/dL Hct 43.9 (37.0-47.0) % MCV 88.0 (80-100) fl MCH 29.1 (26-34) pg MCHC 33.0 (32-36) g/dl RDW 13.0 (11.5-14.5) % Plt Count 325 (150-375) k/mm3 MPV 9.8 (7.4-10.4) fl Immature Gran % (Auto) 0.5 (0-0.5) % Neut % (Auto) 76.5 H (45.5-73.1) % Lymph % (Auto) 15.0 L (18.3-44.2) % [place] % (Auto) 6.7 (2.6-8.5) % Eos % (Auto) 1.0 (0-4.4) % Baso % (Auto) 0.3 (0.2-1.2) % Lymph # (Auto) 1.66 (0.9-3.2) K/mm3 [place] # (Auto) 0.7 H (0.1-0.6) K/mm3 Eos # (Auto) 0.1 (0-0.3) K/mm3 Baso # (Auto) 0.0 (0.0-0.1) K/mm3 Abs Immat Gran (auto) 0.05 H (0.00-0.031) K/mm3 Absolute Neuts (auto) 8.5 H (1.3-6.7) K/mm3 Absolute Nucleated RBC 0.000 (0.0-0.012) K/mm3 Nucleated RBC % 0.0 (0.0-0.2) % Creatinine 0.90 (0.7-1.2) mg/dL Estim Creat Clear Calc 49 ml/min Estimated GFR > 60 (59 - ) Lactic Acid 1.6 (0.7-2.0) mmol/L Lipase 73 (23-300) U/L Urine Color Yellow (Yellow) Urine Appearance Clear (Clear) Urine pH 8.0 (5.0-9.0) Ur Specific [place] 1.007 (1.001-1.035) Urine Protein Negative (Negative) mg/dL Urine Glucose (UA) Negative (Negative) mg/dL Urine Ketones Negative (Negative) mg/dL Ur Blood (Man) Negative (Negative) Urine Nitrate Negative (Negative) Urine Bilirubin Negative (Negative) Urine Urobilinogen 0.2 (<2.0) mg/dL Leukocyte Esterase Rfl Trace H (Negative) NHUNG/UL Urine RBC 0-2 (0-2) /hpf Urine WBC 0-5 (0-3) /hpf Ur Squamous Epith Cells None seen (Few) /hpf Urine Bacteria None seen /hpf Urine Casts 0-2 Imaging Data Radiologist's impression: ITS Impressions Abdomen/Pelvis CT 06/07/24 18:17 IMPRESSION: 1. Changes consistent with recent hysterectomy and bilateral salpingo-oophorectomy. No abscess or other acute intra-abdominal/pelvic process. 2. Fat-containing umbilical and supraumbilical ventral hernias. Discharge Plan Discharge Clinical Impression: Post-operative pain Patient Disposition: Home, Self-Care Condition: Stable Instructions: Abdominal Pain (ED) Additional Instructions: Continue home medications, follow-up with Dr. Sekou Olson Prescriptions: No Action amlodipine 5 mg tablet 5 mg PO PRN PRN (Reason: high bp) Patient Comments: see above atorvastatin 20 mg tablet 20 mg PO DAILY cetirizine 10 mg tablet 10 mg PO DAILY pantoprazole 40 mg tablet,delayed release (DR/EC) 40 mg PO DAILY losartan 100 mg tablet 100 mg PO DAILY vit A-vit C-vit M-hacq-nocdgu [id number],[id number] ousr-ue-gflw Tablet 1 tablet PO DAILY montelukast [Singulair] 10 mg Tablet 10 mg PO DAILY omega 2-hdz-jee-fish oil [Fish Oil] 300-1,000 mg Capsule,Delayed Release(Dr/Ec) 1 cap PO DAILY hydrocodone-acetaminophen 5-325 mg tablet 1 tablet PO Q6H PRN (Reason: pain) Qty: 20 0RF docusate sodium [Colace] 100 mg capsule 100 mg PO BID Qty: 40 0RF Follow-up/Referrals: Raquel,DO Kelli [Primary Care Provider] - Linus Mclain MD [Physician] - Time of Disposition: 18:59
== END 2024-06-07 19:21 | disposition home or self-care (01) ==
PROVIDERS: Emergency Provider Family Medicine; PCP Family Medicine
DX: G89.18 Other acute postprocedural pain (principal); R10.32 Left lower quadrant pain; Z87.891 Personal history of nicotine dependence; Z90.710 Acquired absence of both cervix and uterus; Z90.722 Acquired absence of ovaries, bilateral; Z90.79 Acquired absence of other genital organ(s); K43.9 Ventral hernia without obstruction or gangrene; Z79.899 Other long term (current) drug therapy
CPT/HCPCS: 36415; 74177; 81001; 83605; 83690; 85025; 99284; A9270; Q9967